=== PATIENT | male | born 1945 | race Caucasian/White ===

== ENCOUNTER 2017-10-08 13:11 | Emergency (ER) | payer MEDICARE ==
[2017-10-08] MEDS ORDERED: IV NORMAL SALINE 500ML BAG 500 ML IV ONE ×2 (13:15→14:15)
[2017-10-08 13:29] LABS: BASO % 1 % (0-3); EOS % 1 % (0-3); HEMOGLOBIN 7.6 g/dL (13.0-17.5); LYMPH # 0.7 x10^3/uL (1.0-4.8); LYMPH % 12 % (24-48); MEAN CORPUSCULAR HEMOGLOBIN 30 pg (25-35); MEAN CORPUSCULAR HGB CONC 32 g/dL (31-37); MEAN CORPUSCULAR VOLUME 93 fL (79-100); MONO % 11 % (0-9); NEUT % 75 % (31-73); PLATELET COUNT 88 x10^3/uL (140-400); RED BLOOD COUNT 2.57 x10^6/uL (4.30-5.70); RED CELL DISTRIBUTION WIDTH 15.7 % (11.5-14.5); WHITE BLOOD COUNT 5.4 x10^3/uL (4.0-11.0)
[2017-10-08 13:38] LABS: INR 1.7 (0.8-1.1); PROTHROMBIN TIME PATIENT 18.8 SEC (11.7-14.0)
[2017-10-08 13:44] LABS: CALCIUM 7.4 mg/dL (8.5-10.1); CREATININE 1.1 mg/dL (0.7-1.3); GFR 65.6; POTASSIUM 4.5 mmol/L (3.5-5.1)
[2017-10-08 13:50] LABS: ALBUMIN 1.6 g/dL (3.4-5.0); ALBUMIN/GLOBULIN RATIO 0.4 (1.0-1.7); MAGNESIUM 2.1 mg/dL (1.8-2.4); TOTAL BILIRUBIN 0.4 mg/dL (0.2-1.0)
[2017-10-08 13:51] LABS: BILIRUBIN,URINE NEGATIVE (NEG); GLUCOSE,URINE NEGATIVE (NEG); NITRITE,URINE NEGATIVE (NEG); PH,URINE 7.5; PROTEIN,URINE NEGATIVE (NEG-TRACE)
--- NOTE | 2017-10-08 13:51 | EKG ---
[facility] [address] [place] [address] Test Date: 2017-10-08 Test Time: 13:45:26 Pat Name: ANGELITA MUNIZ Department: Room: Gender: M Cattle Feeder: KOREY : 1945 Requested By: LAURA BROWN Order Number: [id number] Reading MD: Measurements Intervals [place] Rate: 80 P: 0 ID: [id number] QRS: 24 QRSD: 96 T: 118 QT: 424 QTc: 493 Interpretive Statements SINUS ARRHYTHMIA PROLONGED ID INTERVAL LOW LIMB LEAD VOLTAGE QRS(T) CONTOUR ABNORMALITY CONSIDER INFERIOR INFARCT T ABNORMALITY IN ANTERIOR LEADS ABNORMAL ECG RI6.01 No previous ECG available for comparison
--- NOTE | 2017-10-08 13:53 | RAD ---
Portable chest, 10/08/2017: History: Shortness of breath, hypotension No previous chest imaging is available at this time for comparison purposes. A tracheostomy tube is in place in satisfactory position. There is a linear opacity projected over the medial aspect of the right upper arm which is probably a vascular catheter. Clinical correlation is suggested. A cardiac valvular prosthesis is noted. The heart appears to be mildly enlarged. There are moderate bibasilar opacities obscuring the hemidiaphragms suggesting a combination of pleural fluid and infiltrate. The underlying pulmonary vascularity is poorly defined. There is no evidence of pneumothorax. IMPRESSION: Moderate bilateral pulmonary infiltrates and pleural effusions, most likely due to congestive heart failure with pulmonary edema.
--- NOTE | 2017-10-08 13:55 | RAD ---
Left upper extremity venous ultrasound, 10/08/2017: History: Left arm swelling Duplex evaluation of the major veins in the left upper extremity was performed including grayscale, color-flow and spectral Doppler analysis. The left internal jugular, subclavian, axillary and paired brachial veins are patent. Patent basilic and cephalic veins are present in the upper arm. Patent ulnar and radial veins are evident in the forearm. Mild subcutaneous edema is noted. IMPRESSION: No sonographic evidence of deep vein thrombosis in the left upper extremity.
[2017-10-08 14:03] LABS: BACTERIA,URINE 0 /HPF (0-FEW); SQUAMOUS EPITHELIAL CELL,UR FEW /LPF
--- NOTE | 2017-10-08 15:10 | RAD ---
CT of the chest without contrast, 10/08/2017: History: Chronic pleural effusions, shortness of breath Noncontrast scans were obtained as requested. A tracheostomy tube is in place. An aortic valvular prosthesis is present. There is calcific plaquing of the thoracic aorta without evidence of aneurysm. The heart is at the upper limits of normal in size. A tiny amount of pericardial fluid is present. There is a large right pleural effusion with nearly complete atelectasis of the right lower lobe. There is mild to moderate right upper lobe atelectasis/infiltrate, most prominent posteriorly. There is a moderate volume of left-sided pleural fluid. There is moderate atelectasis/infiltrate primarily in the posterior aspects of the left upper and lower lobes. The dependent nature of these infiltrates is most compatible with pulmonary edema. A very small right pneumothorax is present. There is moderate subcutaneous edema posterolaterally compatible with anasarca There is thickening of the intra-abdominal wall musculature on the right in the upper abdomen, incompletely delineated on these scans. The appearance raises the possibility of a hematoma in the musculature. There are mild vertebral compression deformities at T12 and L1, of indeterminate ages. IMPRESSION: 1. Large right pleural effusion and moderate sized left pleural effusion with considerable underlying atelectasis/infiltrate as described above. The dependent nature of these infiltrates suggest pulmonary edema, although pneumonia cannot be excluded. 2. Tiny right pneumothorax. 3. Thickening of the anterior abdominal wall musculature on the right in the upper abdomen, incompletely delineated on these scans. A hematoma is suspected. PQRS Compliance Statement: One or more of the following individualized dose reduction techniques were utilized for this examination: 1. Automated exposure control 2. Adjustment of the mA and/or kV according to patient size 3. Use of iterative reconstruction technique
--- NOTE | 2017-10-08 15:25 | PHYS DOC ---
Past Medical History Past Medical History: A-Fib, Anxiety, Bipolar, CAD, CVA, Depression, GERD, High Cholesterol, MRSA, Pneumonia, Seizure Additional Past Medical Histor: MRSA SPUTUM, OSTEOPOROSIS, RESP FAILURE Additional Past Surgical Histo: AORTIC VALVE REPLACEMENT, PEG TUBE, TRACHEOSTOMY, AORTIC ANEURYSM REPAIR Alcohol Use: None Drug Use: None Adult General Chief Complaint Chief Complaint: HYPOTENSION HPI HPI Patient is a 72 year old male who presents with hypotension. Pt has multiple comorbidities, including chronic resp failure with trach. Pt has been battling pleural effusions and sent from [facility] by Dr. Vernon for Thoracentesis. Pt was found to be hypotensive so brought to the ER. Pt is poor historian as he has difficulty talking. Pt has left upper extremity swelling. He's been receiving significant amount of lasix and has also had recent thoracentesis. No reports of increased cough/fevers. Records show pt may have just received his blood pressure medications prior to coming to the hospital for his procedure. Review of Systems Review of Systems unable due to obtain due to medical condition. Current Medications Current Medications Current Medications Medications (Trade) Dose Ordered Sig/Kandice Start Time Stop Time Status Last Admin Dose Admin Sodium Chloride 500 ml @ 500 mls/hr 1X ONCE 10/08/17 14:15 10/08/17 15:14 DC 10/08/17 14:17 500 MLS/HR Allergies Allergies Allergies Coded Allergies Type Severity Reaction Last Updated Verified No Known Drug Allergies 10/08/17 No Physical Exam Physical Exam Constitutional: Well developed, appears chronically ill, bagging the trach while setting up the vent HENT: Normocephalic, atraumatic, bilateral external ears normal, oropharynx dry Eyes: PERRLA, conjunctiva normal, no discharge. [] Neck: Normal range of motion, anterior trach without surrounding drainage or erythema Cardiovascular:Heart rate regular with regular rhythm Lungs & Thorax: Bilateral breath sounds, poor air movement, R diminished compared to L Abdomen: feeding tube in place, feels full, no appreciable ttp, no guarding Skin: Warm, dry Extremities: LUE with edema 1+ compared to remaining extremities. Neurologic: Alert but unable to answer orientation questions, pt appears weak but no focal new deficits appreciated. Current Patient Data Vital Signs Vital Signs Date Time Temp Pulse Resp B/P (MAP) Pulse Ox O2 Delivery O2 Flow Rate FiO2 10/08/17 16:55 84 20 94/53 (67) 98 Ventilator 12/5/17 13:11 98.5 98.5 Lab Values Laboratory Tests Test 10/08/17 13:10 10/08/17 13:40 White Blood Count 5.4 x10^3/uL (4.0-11.0) Red Blood Count 2.57 x10^6/uL (4.30-5.70) L Hemoglobin 7.6 g/dL (13.0-17.5) L Hematocrit 24.0 % (39.0-53.0) L Mean Corpuscular Volume 93 fL (79-100) Mean Corpuscular Hemoglobin 30 pg (25-35) Mean Corpuscular Hemoglobin Concent 32 g/dL (31-37) Red Cell Distribution Width 15.7 % (11.5-14.5) H Platelet Count 88 x10^3/uL (140-400) L Neutrophils (%) (Auto) 75 % (31-73) H Lymphocytes (%) (Auto) 12 % (24-48) L Monocytes (%) (Auto) 11 % (0-9) H Eosinophils (%) (Auto) 1 % (0-3) Basophils (%) (Auto) 1 % (0-3) Neutrophils # (Auto) 4.1 x10^3uL (1.8-7.7) Lymphocytes # (Auto) 0.7 x10^3/uL (1.0-4.8) L Monocytes # (Auto) 0.6 x10^3/uL (0.0-1.1) Eosinophils # (Auto) 0.1 x10^3/uL (0.0-0.7) Basophils # (Auto) 0.0 x10^3/uL (0.0-0.2) Prothrombin Time 18.8 SEC (11.7-14.0) H Prothrombin Time INR 1.7 (0.8-1.1) H Sodium Level 136 mmol/L (136-145) Potassium Level 4.5 mmol/L (3.5-5.1) Chloride Level 101 mmol/L (98-107) Carbon Dioxide Level 32 mmol/L (21-32) Anion Gap 3 (6-14) L Blood Urea Nitrogen 35 mg/dL (8-26) H Creatinine 1.1 mg/dL (0.7-1.3) Estimated GFR (Cockcroft-Gault) 65.6 BUN/Creatinine Ratio 32 (6-20) H Glucose Level 85 mg/dL (70-99) Lactic Acid Level 1.2 mmol/L (0.4-2.0) Calcium Level 7.4 mg/dL (8.5-10.1) L Magnesium Level 2.1 mg/dL (1.8-2.4) Total Bilirubin 0.4 mg/dL (0.2-1.0) Aspartate Amino Transferase (AST) 49 U/L (15-37) H Alanine Aminotransferase (ALT) 27 U/L (16-63) Alkaline Phosphatase 84 U/L (46-116) Troponin I Quantitative < 0.017 ng/mL (0.000-0.055) VZ-Kvw-D-Type Natriuretic Peptide 6930 pg/mL (0-124) H Total Protein 6.0 g/dL (6.4-8.2) L Albumin 1.6 g/dL (3.4-5.0) L Albumin/Globulin Ratio 0.4 (1.0-1.7) L Urine Collection Type Unknown Urine Color Yellow Urine Clarity Clear Urine pH 7.5 Urine Specific [place] 1.020 Urine Protein Negative mg/dL (NEG-TRACE) Urine Glucose (UA) Negative mg/dL (NEG) Urine Ketones (Stick) Negative mg/dL (NEG) Urine Blood Negative (NEG) Urine Nitrite Negative (NEG) Urine Bilirubin Negative (NEG) Urine Urobilinogen Dipstick 4.0 mg/dL (0.2 mg/dL) Urine Leukocyte Esterase Small (NEG) Urine RBC 6-10 /HPF (0-2) Urine WBC 5-10 /HPF (0-4) Urine Squamous Epithelial Cells Few /LPF Urine Bacteria 0 /HPF (0-FEW) Urine Hyaline Casts Few /HPF Urine Mucus Slight /LPF Laboratory Tests 10/08/17 13:10 Laboratory Tests 10/08/17 13:10 EKG EKG 1345: 80 bpm, sinus, normal axis, normal intervals with the exception of [place] of 250, low voltage throughout, no ST elevation or depression appreciated, interpreted by me[] Radiology/Procedures Radiology/Procedures CXR:IMPRESSION: Moderate bilateral pulmonary infiltrates and pleural effusions, most likely due to congestive heart failure with pulmonary edema. US LUE: IMPRESSION: No sonographic evidence of deep vein thrombosis in the left upper extremity. CT chest: IMPRESSION: 1. Large right pleural effusion and moderate sized left pleural effusion with considerable underlying atelectasis/infiltrate as described above. The dependent nature of these infiltrates suggest pulmonary edema, although pneumonia cannot be excluded. 2. Tiny right pneumothorax. 3. Thickening of the anterior abdominal wall musculature on the right in the upper abdomen, incompletely delineated on these scans. A hematoma is suspected. Course & Med Decision Making Course & Med Decision Making Pertinent Labs and Imaging studies reviewed. (See chart for details) Pt suctioned by RT upon arrival. Pt given NS bolus. BP remained stable. I talked with Dr. Vernon, he would like pt returned to [facility] for further management. No thoracentesis available today. Pt transferred back to [facility] Disclaimer [facility] Disclaimer This electronic medical record was generated, in whole or in part, using a voice recognition dictation system. Departure Departure Impression: Primary Impression: Pleural effusion Disposition: 03 TRANSFER SNF Condition: STABLE Patient Instructions: Pleural Effusion-Brief LAURA BROWN MD Oct 08, 2017 15:25
[2017-10-08 16:55] VITALS: BP 94/53
== END 2017-10-08 17:00 | disposition home or self-care (01) ==
LOC: ER 13:11
DX: J90 Pleural effusion, not elsewhere classified (principal); E78.00 Pure hypercholesterolemia, unspecified; I48.91 Unspecified atrial fibrillation; K21.9 Gastro-esophageal reflux disease without esophagitis; Z93.0 Tracheostomy status; Z95.2 Presence of prosthetic heart valve; F31.9 Bipolar disorder, unspecified; Z86.73 Personal history of transient ischemic attack (TIA), and cerebral infarction without residual deficits; I25.10 Atherosclerotic heart disease of native coronary artery without angina pectoris; Z87.09 Personal history of other diseases of the respiratory system
CPT/HCPCS: 36415; 71010; 71250; 80053; 81001; 83605; 83735; 83880; 84484; 85025; 85610; 87040; 93005; 93971; 96360; 99285; J7040